=== PATIENT | male | born 1980 | race Caucasian/White ===

== ENCOUNTER 2018-04-28 09:00 | Emergency (ER) | payer BC ==
[~2018-04-28] VITALS: Ht 193 cm; Wt 95.3 kg
[2018-04-28] MEDS ORDERED: PREDNISONE50 MG (09:09)
== END 2018-04-28 14:26 | disposition home or self-care (01) ==
LOC: ER 09:00
DX: M79.652 Pain in left thigh (principal); T24.212A Burn of second degree of left thigh, initial encounter; T31.0 Burns involving less than 10% of body surface; T79.8XXA Other early complications of trauma, initial encounter; X19.XXXA Contact with other heat and hot substances, initial encounter; Y93.89 Activity, other specified; Y92.89 Other specified places as the place of occurrence of the external cause; Y99.8 Other external cause status

== ENCOUNTER 2018-10-27 00:18 | Inpatient (IN) | payer BC ==
[~2018-10-27] VITALS: Ht 193 cm; Wt 88.5 kg
[~2018-10-27 00:18] MED LIST: PREDNISONE50 MG
--- NOTE | 2018-10-27 00:25 | NUR ---
PACIENTE REFIERE SANGRADO RECTAL DESDE HACE 2 MESES.REFIERE HISTORIAL CROHN DISEASE.
--- NOTE | 2018-10-27 04:35 | NUR ---
SE ORIENTA A PTE SOBRE PROCESO DE VENOPUNCION, MAX DE MUESTRAS, ADMINISTRACION DE MED IV PTE REFIERE ENTENDER INF NABEEL POR RN DE CAROLEEO. PTE SE MANTIENE BAJO OBSERVACION RECIBIENDO TRATAMIENTO MEDICO.
--- NOTE | 2018-10-27 08:07 | NUR ---
PACIENTE ALERTA Y ORIENTADO X3. EN SUKUMAR CON BARANDAS ELEVADAS. IV FLUID PATENTE Y IAM DE EDEMA Y ERITEMA. SE MANTIENE BAJO OBSERVACION POR CAMBIOS SIGNIFICATIVOS.
== END 2018-10-28 11:00 | disposition left against medical advice (07) | DRG 378 ==
LOC: ER 00:18 → MEDJ 10:07
PROVIDERS: ADMIT Internal Medicine
DX: K62.5 Hemorrhage of anus and rectum (principal); D62 Acute posthemorrhagic anemia; K52.89 Other specified noninfective gastroenteritis and colitis; Z88.0 Allergy status to penicillin